=== PATIENT | male | born 1980 | race American Indian/Alaskan Native ===

== ENCOUNTER 2020-11-03 19:56 | Emergency (ER) | payer OTHER ==
[2020-11-03 23:00] VITALS: BP 137/95
[2020-11-04 00:36] LABS: BUN/Creatinine Ratio 14; Blood Urea Nitrogen 13 mg/dL (9-20); Calcium 9.5 mg/dL (8.4-10.2); Hemolysis Index 9
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
--- NOTE | 2020-11-04 02:29 | Cat Scan Report ---
CT head without contrast INDICATION : Patient complains of a headache. TECHNIQUE: Axial imaging performed from the skull apex through the skull base without the use of con trast. All CT scans at this location are performed using CT dose reduction for ALARA by means of aut omated exposure control. COMPARISON: None FINDINGS: Parenchyma: No acute intracranial hemorrhage or parenchymal abnormality. Ventricles: Ventricles are normal in size and appear symmetric. Soft tissues: Soft tissues including the orbits appear normal. Bones: No acute osseous abnormality. Sinuses: Mild mucosal thickening in the right maxillary sinus. Remaining sinuses and and mastoid air cells are clear. IMPRESSION: No acute abnormality. Signer Name: Reed Hagen MD Signed: 11/04/2020 2:25 AM Workstation Name: [id number]
--- NOTE | 2020-11-04 02:46 | Cat Scan Report ---
CT ABDOMEN AND PELVIS WITH CONTRAST HISTORY: Patient complains of LEFT lower abdominal pain.. COMPARISON: None. TECHNIQUE: CT images of the abdomen and pelvis were obtained following administration of intravenous contrast. All CT scans at this location are performed using CT dose reduction for ALARA by means of automated exposure control. CONTRAST: 100 ml of intravenous contrast administered. FINDINGS: Lungs/bones: Tiny calcified granuloma in the right lung base. Lungs are otherwise clear. No acute os seous abnormality identified. Bilateral L5 pars defects are present. Abdomen/pelvis: The liver, gallbladder, spleen, pancreas, adrenals, kidneys, and proximal GI tract a ppear unremarkable. Urinary bladder and prostate are unremarkable with no pelvic free fluid. No acute colonic abnormality . The appendix is normal. IMPRESSION: 1. No acute abnormality identified. 2. Incidental findings as above. Signer Name: Reed Hagen MD Signed: 11/04/2020 2:42 AM Workstation Name: [id number]
== END 2020-11-04 03:30 | disposition home or self-care (01) ==
LOC: ED 19:56
DX: M79.18 Myalgia, other site (principal); Z79.899 Other long term (current) drug therapy; V49.59XA Passenger injured in collision with other motor vehicles in traffic accident, initial encounter; Y92.410 Unspecified street and highway as the place of occurrence of the external cause; Y93.89 Activity, other specified; Y99.8 Other external cause status
CPT/HCPCS: 36415; 70450; 74177; 80048; 99283; Q9967